=== PATIENT | female | born 1955 | race African-American/Black ===

== ENCOUNTER 2019-08-17 17:22 | Inpatient (IN) | payer MEDICAID ==
[~2019-08-17] VITALS: Ht 172.7 cm; Wt 118.8 kg
[2019-08-17] MEDS ORDERED: MORPHINE SULFATE INJ 4 MG/ML DISP.SYRIN ONE ×2 (17:53→21:50)
--- NOTE | 2019-08-17 17:56 | NUR ---
labs drawn, sent to labs
--- NOTE | 2019-08-17 17:57 | NUR ---
pain meds given as ordered by Dr. Ball
[2019-08-17] MEDS ORDERED: MORPHINE SULFATE INJ 2 MG/ML DISP.SYRIN IV ONE ×2 (18:00→22:00)
[2019-08-17] MEDS ORDERED: ONDANSETRON HCL/PF 4 MG/2 ML VIAL IVP ONE (18:00)
[2019-08-17] MEDS ORDERED: IV NS 0.9% 1,000 ML BAG IV ONE ×2 (18:00→21:30)
[2019-08-17] MEDS ORDERED: ONDANSETRON HCL/PF 4 MG/2 ML VIAL ONE (18:01)
[2019-08-17 18:04] LABS: BASOPHILS % (AUTO) 0.2 % (0.0-2.0); EOSINOPHILS % (AUTO) 0.5 % (0.0-6.0); HEMATOCRIT 45 % (33-45); HEMOGLOBIN 15.2 g/dL (11.5-14.8); LYMPHOCYTES # (AUTO) 1.1 /CMM (0.8-4.8); LYMPHOCYTES % (AUTO) 12.1 % (20.0-44.0); MEAN CORPUSCULAR HGB CONC 34 g/dl (31.0-36.0); MEAN CORPUSCULAR VOLUME 89 fL (82-100); MONOCYTES # (AUTO) 0.1 /CMM (0.1-1.30); MONOCYTES % (AUTO) 1.2 % (2.0-12.0); NEUTROPHILS # (AUTO) 7.9 /CMM (1.8-8.9); PLATELET COUNT (AUTO) 300 /CMM (150-450); RED BLOOD CELL COUNT(AUTO) 5.03 MIL/uL (4.0-5.2); WHITE BLOOD COUNT (AUTO) 9.2 K/uL (4.3-11.0)
--- NOTE | 2019-08-17 18:12 | NUR ---
ER notified of the patient's current pain status - Dr. Ball is aware
--- NOTE | 2019-08-17 18:20 | NUR ---
the patient remained on shift production supervisor
[2019-08-17 18:43] LABS: CALCIUM, SERUM 10.1 mg/dL (8.5-10.1); CARBON DIOXIDE 29 mmol/L (21-32); CHLORIDE 100 mmol/L (98-107); CREATININE 0.9 mg/dL (0.6-1.3); GLUCOSE 133 mg/dL (74-106); POTASSIUM 3.7 mmol/L (3.5-5.1); SODIUM SERUM 140 mmol/L (136-145); UREA NITROGEN, BLOOD 10 mg/dL (7-18)
[2019-08-17 18:47] LABS: ALANINE AMINOTRANSFERASE 113 U/L (12-78); ALBUMIN 3.4 g/dL (3.4-5.0); ALKALINE PHOSPHATASE 179 U/L (46-116); ASPARTATE AMINOTRANSFERASE 237 U/L (15-37); BILIRUBIN,DIRECT 0.5 mg/dL (0.0-0.2); BILIRUBIN,TOTAL 1.2 mg/dL (0.2-1.0); LIPASE 107 U/L (73-393); TOTAL PROTEIN, SERUM 8.1 g/dL (6.4-8.2)
[2019-08-17] MEDS ORDERED: IV NS 0.9% 250 ML IV ONE ×2 (18:54→19:45)
[2019-08-17] MEDS ORDERED: CT SWABBABLE VALVE TRANS SET 1 EA INFUS.SET MC ONE ×2 (18:54→19:45)
[2019-08-17] MEDS ORDERED: IOHEXOL-350 100 ML VIAL IV ONE ×2 (18:54→19:45)
--- NOTE | 2019-08-17 19:35 | NUR ---
PT RETURNED FROM [facility]IA [facility]
--- NOTE | 2019-08-17 20:19 | NUR ---
PHLEB AT BEDSIDE FOR LAB REDRAW
--- NOTE | 2019-08-17 20:53 | NUR ---
URINE COLLECTED AND SENT TO LAB
[2019-08-17 21:04] LABS: APPEARANCE,URINE Clear (CLEAR); BILIRUBIN,URINE Negative (NEGATIVE); BLOOD, URINE Small Ery/uL (NEGATIVE); COLOR,URINE Yellow (YELLOW); KETONES,URINE Negative (NEGATIVE); LEUKOCYTE ESTERASE ,URINE Negative (NEGATIVE); NITRITE, URINE Negative (NEGATIVE); PH,URINE 5.5 (5.0-8.0); PROTEIN,URINE Negative (NEGATIVE); UGLUCOSE Negative (NEGATIVE)
--- NOTE | 2019-08-17 21:16 | NUR ---
LACTIC 5.3. MD AWARE.
[2019-08-17 21:26] LABS: WBC,URINE 0-2 /HPF (0-3)
[2019-08-17 21:27] LABS: BACTERIA,URINE Few /HPF (None Seen); SQUAMOUS EPITHELIAL CELL,UR Few /HPF (None Seen)
[2019-08-17] MEDS ORDERED: PIPERACILLIN /TAZOBACTAM 3.375 G in IV D5W 50 ML IV ONE (21:30)
[2019-08-17] MEDS ORDERED: PIPERACILLIN /TAZOBACTAM 3.375 G VIAL IV ONE (21:50)
[2019-08-17 22:18] LABS: ACETAMINOPHEN 0 ug/ml (10-30)
[2019-08-17 22:19] LABS: ALCOHOL, BLOOD < 3 mg/dL (0-0)
--- NOTE | 2019-08-17 23:35 | NUR ---
CALLED [facility] FOR PANEL ADMISSION, DR. ROMEO NIXON.
--- NOTE | 2019-08-18 00:20 | NUR ---
PT ASSIGNED TO 102
[2019-08-18] MEDS ORDERED: Z GUARD REMEDY 2 OZ OINT TP PRN (00:30)
[2019-08-18] MEDS ORDERED: MAGNESIUM HYDROXIDE 30 ML UDC PO PRN (00:30)
[2019-08-18] MEDS ORDERED: MAG HYDROX/AL HYDROX/SIMETH 30 ML UDC PO PRN (00:30)
[2019-08-18] MEDS ORDERED: ZOLPIDEM TARTRATE 5 MG TABLET PO PRN (00:30)
--- NOTE | 2019-08-18 00:30 | NUR ---
REPORT GIVEN TO TIBURCIO HOLLINS FOR KAMINI
[2019-08-18 00:57] VITALS: BP 104/60
[2019-08-18] MEDS: IV 1/2NS 1000 ML 1,000 ML IV PRN ×3 (01:55→12:58)
[2019-08-18] MEDS: HYDROCODONE/APAP 5/325MG 1 EACH TABLET PO PRN ×2 (01:57→13:53)
[2019-08-18 04:20] VITALS: BP 110/72
[2019-08-18] MEDS ORDERED: PIPERACILLIN /TAZOBACTAM 4.5 G in IV D5W 50 ML IV SCH (06:00)
--- NOTE | 2019-08-18 07:00 | NUR ---
RN MS NOTE RECEIVED REPORT AT BEDSIDE. PATIENT IS RESTING COMFORTABLY. ON ROOM AIR, NO ACUTE RESPIRATORY DISTRESS OR SOB NOTED. R AC 1/2 NS RUNNING 125 ML/HR. LEFT AC IV NOT FLUSHED AND PT COMPLAINED OF PAIN, L AC IV REMOVED AT THIS TIME. SAFETY MEASURE IN PLACE. CALL LIGHT WITHIN REACH. BED IN LOWEST AND LOCKED POSITION. SIDE RAILS UPX2. INSTRUCTED TO USE CALL LIGHT IF SHE NEEDS TO GO TO THE BATHROOM. WILL CONT' TO MONITOR.
--- NOTE | 2019-08-18 07:07 | NUR ---
MS RN CLOSING NOTES: PATIENT IS RESTING COMFORTABLY IN BED. NO SOB NOTED. NORCO 1 TAB PO GIVEN AT 0200 FOR BACK PAIN. RESTED THROUGHOUT THE NIGHT. NO ACUTE EVENTS OVERNIGHT. VOIDED. NO BM YET. ZOSYN IV DUE AT 0600 NOT GIVEN- MED IS NOT AVAILABLE ON FLOOR- WILL ENDORSE TO THE NEXT SHIFT RN. CALL LIGHT WITHIN REACH. BED IN LOWEST AND LOCKED POSITION.
[2019-08-18 07:46] LABS: BASOPHILS % (AUTO) 0.1 % (0.0-2.0); HEMATOCRIT 39 % (33-45); LYMPHOCYTES # (AUTO) 0.8 /CMM (0.8-4.8); LYMPHOCYTES % (AUTO) 3.2 % (20.0-44.0); MEAN CORPUSCULAR HGB CONC 33 g/dl (31.0-36.0); MEAN CORPUSCULAR VOLUME 89 fL (82-100); MONOCYTES # (AUTO) 1.5 /CMM (0.1-1.30); MONOCYTES % (AUTO) 5.8 % (2.0-12.0); NEUTROPHILS # (AUTO) 23.4 /CMM (1.8-8.9); NEUTROPHILS % (AUTO) 90.9 % (43.0-81.0); PLATELET COUNT (AUTO) 291 /CMM (150-450); RED BLOOD CELL COUNT(AUTO) 4.39 MIL/uL (4.0-5.2); WHITE BLOOD COUNT (AUTO) 25.8 K/uL (4.3-11.0)
[2019-08-18 08:00] VITALS: BP 102/63
[2019-08-18 08:05] LABS: THYROID STIMULATING HORMONE 2.689 uIU/mL (0.358-3.74)
[2019-08-18 08:22] LABS: ALANINE AMINOTRANSFERASE 173 U/L (12-78); ALBUMIN 2.6 g/dL (3.4-5.0); ALKALINE PHOSPHATASE 174 U/L (46-116); ASPARTATE AMINOTRANSFERASE 165 U/L (15-37); BILIRUBIN,TOTAL 3.7 mg/dL (0.2-1.0); CALCIUM, SERUM 8.5 mg/dL (8.5-10.1); CARBON DIOXIDE 26 mmol/L (21-32); CHLORIDE 99 mmol/L (98-107); CREATININE 0.9 mg/dL (0.6-1.3); GLUCOSE 134 mg/dL (74-106); LIPASE 45 U/L (73-393); SODIUM SERUM 138 mmol/L (136-145); TOTAL PROTEIN, SERUM 6.7 g/dL (6.4-8.2); UREA NITROGEN, BLOOD 7 mg/dL (7-18)
[2019-08-18] MEDS ORDERED: HYDR25TA4 PO (08:31)
[2019-08-18] MEDS ORDERED: DICL100G16 TP (08:31)
--- NOTE | 2019-08-18 12:44 | NUR ---
RN MS NOTE CALLED [facility]RISTOF[facility] RASMUSSEN TO GET CONSENT FOR WOUND DEBRIDMENT. NO ANSWER, VOICE MESSAGE LEFT.
[2019-08-18] MEDS: PIPERACILLIN /TAZOBACTAM 3.375 G in IV D5W 100 ML IV SCH ×2 (12:55→20:22)
[2019-08-18] MEDS: POTASSIUM CL. PREMIX PERIPHER. 50 ML IV SCH ×6 (12:55→19:14)
--- NOTE | 2019-08-18 12:55 | NUR ---
RN MS NOTE PT BS 134. DR. VAZQUEZ MADE AWARE. INSULIN ORDERED.
[2019-08-18] MEDS ORDERED: INSULIN REGULAR, HUMAN 100 UNIT/ML 3 ML VIAL SQ PRN (13:30)
[2019-08-18] MEDS ORDERED: DEXTROSE 50%-WATER 50 ML DISP.SYRIN IV PRN (13:30)
[2019-08-18 16:00] VITALS: BP 110/68
--- NOTE | 2019-08-18 16:20 | NUR ---
RN MS NOTE PT HAS GRAM NEGATIVE RODS IN BLOOD CULTURE. DR. VAZQUEZ MADE AWARE.
[2019-08-18] MEDS: BLOOD SUGAR DIAGNOSTIC 1 EACH STRIP IN SCH ×2 (18:06→21:15)
--- NOTE | 2019-08-18 18:46 | NUR ---
RN MS NOTE LACTIC ACID 1.0. DR. WHITE MADE AWARE.
--- NOTE | 2019-08-18 19:00 | NUR ---
RN MS OPENING NOTES RECEIVED PATIENT IN BED AWAKE ALERT AND ORIENTED X 4 RESPIRATIONS EVEN AND UNLABORED WITH EQUAL RISE AND FALL OF CHEST, DENIES ANY PAIN OR DISCOMFORT AT THIS TIME, IV SITE TO RIGHT AC INTACT AND PATENT, NO REDNESS,NO INFILTRATION PRESENT, ORIENTED TO STAFF AND CALL LIGHT AND KEPT WITHIN REACH, SAFETY PRECAUTIONS IN PLACE, LOW BED AND LOCKED, FLUIDS AND TOILETING OFFERED, DISCUSSED PLAN OF CARE ALL NEEDS ATTENDED AT THIS TIME WILL CONTINUE TO MONITOR NEEDS.
--- NOTE | 2019-08-18 19:54 | NUR ---
MS RN CLOSING NOTE PT AWAKE. NO SIGN OF RESPIRATORY DISTRESS OR SOB AT THIS TIME. DENIES PAIN. ALL NEEDS ATTENDANT. NO SIGNIFICANT CHANGE DURING THE SHIFT. SAFETY MEASURE IN PLACE. BED LOCKED AND LOW. SIDE RAILS UP X3, CALL LIGHT IN REACH. ENDORSED TO THE PM NURSE FOR KAMINI.
[2019-08-18 20:00] VITALS: BP 121/71
[2019-08-18] MEDS: MORPHINE SULFATE INJ 2 MG/ML DISP.SYRIN IV PRN (21:11)
--- NOTE | 2019-08-18 21:11 | NUR ---
RN MS NOTES PATIENT STATES "RIGHT ARM IN IS ACHY FROM IVF RECEIVED POTASSIUM TODAY REQUESTING FOR PAIN MEDICATION MORPHINE 10/" VS WNL MORPHINE PRN GIVEN ORDERED WILL CONTINUE TO MONITOR, IV SITE IS INTACT AND PATENT, NO REDNESS, NO INFILTRATION.
[2019-08-19] MEDS: ACETAMINOPHEN 325 MG TABLET PO PRN (00:19)
--- NOTE | 2019-08-19 00:19 | NUR ---
RN MS NOTES PATIENT COMPLAINT OF HEADACHE, OFFERED TYLENOL, PRN GIVEN ORDERED WILL CONTINUE TO MONITOR.
[2019-08-19 04:00] VITALS: BP 97/62
[2019-08-19] MEDS: PIPERACILLIN /TAZOBACTAM 3.375 G in IV D5W 100 ML IV SCH ×3 (04:36→20:24)
--- NOTE | 2019-08-19 06:27 | NUR ---
RN MS CLOSING NOTES PATIENT IN BED AWAKE ALERT AND ORIENTED X 4 RESPIRATIONS EVEN AND UNLABORED WITH EQUAL RISE AND FALL OF CHEST, DENIES ANY PAIN OR DISCOMFORT AT THIS TIME, IV SITE TO RIGHT AC INTACT AND PATENT, NO REDNESS,NO INFILTRATION PRESENT,IVF RUNNING ORDERED PATIENT AT TIMES REQUESTED TO HAVE IV OFF AND ON THROUGHOUT SHIFT, TOLERATING PO FLUIDS WELL.CALL LIGHT AND KEPT WITHIN REACH, SAFETY PRECAUTIONS IN PLACE, LOW BED AND LOCKED, FLUIDS AND TOILETING OFFERED, ALL NEEDS ATTENDED AT THIS TIME WILL CONTINUE TO MONITOR AND ENDORSE TO NEXT SHIFT. REMAINS COMFORTABLE.
[2019-08-19 07:30] LABS: BASOPHILS % (AUTO) 0.2 % (0.0-2.0); EOSINOPHILS % (AUTO) 0.9 % (0.0-6.0); HEMATOCRIT 37 % (33-45); HEMOGLOBIN 12.4 g/dL (11.5-14.8); LYMPHOCYTES # (AUTO) 1.2 /CMM (0.8-4.8); MEAN CORPUSCULAR HGB CONC 33 g/dl (31.0-36.0); MEAN CORPUSCULAR VOLUME 89 fL (82-100); MONOCYTES # (AUTO) 0.7 /CMM (0.1-1.30); MONOCYTES % (AUTO) 5.4 % (2.0-12.0); NEUTROPHILS # (AUTO) 10.3 /CMM (1.8-8.9); NEUTROPHILS % (AUTO) 83.5 % (43.0-81.0); PLATELET COUNT (AUTO) 229 /CMM (150-450); RED BLOOD CELL COUNT(AUTO) 4.19 MIL/uL (4.0-5.2); WHITE BLOOD COUNT (AUTO) 12.3 K/uL (4.3-11.0)
[2019-08-19] MEDS: BLOOD SUGAR DIAGNOSTIC 1 EACH STRIP IN SCH ×4 (07:47→22:15)
[2019-08-19 08:00] VITALS: BP 138/77
[2019-08-19 10:19] LABS: ALBUMIN 2.4 g/dL (3.4-5.0); BILIRUBIN,TOTAL 2.1 mg/dL (0.2-1.0); CALCIUM, SERUM 8.7 mg/dL (8.5-10.1); CREATININE 0.8 mg/dL (0.6-1.3); PHOSPHORUS 2.2 mg/dL (2.5-4.9); POTASSIUM 3.4 mmol/L (3.5-5.1); TOTAL PROTEIN, SERUM 6.2 g/dL (6.4-8.2)
[2019-08-19 12:00] VITALS: BP 138/77
[2019-08-19] MEDS ORDERED: K PHOS NEUTRAL 250 MG TABLET PO ONE (13:30)
--- NOTE | 2019-08-19 15:35 | NUR ---
MS RN NOTES OPENING RECEIVED PT SITTING IN THE BED A/O X4, COOPERATIVE. NO SIGNS OF SOB NOTED. PT COMPLAINED OF HEADACHE , OFFERED MEDICATION AND SHE REFUSED. EDUCATED HER TO USE CALL LIGHT AND ASK FOR PRN MEDICATION IF WORSEN. RIGHT ARM SL FLUSHED WELL AND PATENT. ALL SAFETY MEASURES IMPLANTED, BED AT THE LOWEST POSITION AND LOCKED, SIDE RAILS UPX2, CALL LIGHT WITHIN REACH. WILL CONTINUE TO MONITOR.
[2019-08-19 16:00] VITALS: BP 137/68
--- NOTE | 2019-08-19 19:45 | NUR ---
MS RN NOTE PATIENT RECEIVED IN BED AWAKE A/O X 4. PATIENT DENIES CHEST PAIN/ SOB/ DISCOMFORT/ ABD PAIN. DISCUSSED WITH PATIENT GOALS FOR THE DAY AND PLAN OF CARE. PATIENT BREATHING EVEN AND UNLABORED NO S/S OF DISTRESS AT THIS TIME. CALL LIGHT WITHIN REACH. RN WILL CONTINUE TO MONITOR FOR CHANGES .
[2019-08-19 20:00] VITALS: BP 123/74
--- NOTE | 2019-08-19 20:55 | NUR ---
MS RN NOTES PT IN BED SITTING AND AWAKE. A/O X4 . ALL NEED ATTENDED. SL ON THE LEFT ARM PATENT AND FLUSHED WITH SALINE. CALL LIGHT WITHIN REACH . ENDORSED TO NIGHT RN FOR KAMINI.
[2019-08-20] MEDS: MORPHINE SULFATE INJ 2 MG/ML DISP.SYRIN IV PRN ×2 (01:08→12:32)
[2019-08-20] MEDS: IV 1/2NS 1000 ML 1,000 ML IV PRN (01:09)
[2019-08-20] MEDS: ONDANSETRON HCL/PF 4 MG/2 ML VIAL IVP PRN ×2 (01:09→12:32)
[2019-08-20] MEDS: ACETAMINOPHEN 325 MG TABLET PO PRN (03:50)
[2019-08-20] MEDS: PIPERACILLIN /TAZOBACTAM 3.375 G in IV D5W 100 ML IV SCH ×3 (03:54→20:00)
[2019-08-20 04:00] VITALS: BP 99/61
[2019-08-20 06:17] LABS: ALBUMIN 2.4 g/dL (3.4-5.0); BILIRUBIN,TOTAL 1.1 mg/dL (0.2-1.0); CALCIUM, SERUM 8.6 mg/dL (8.5-10.1); CREATININE 0.8 mg/dL (0.6-1.3); MAGNESIUM 2.1 mg/dL (1.8-2.4); PHOSPHORUS 2.9 mg/dL (2.5-4.9); POTASSIUM 3.4 mmol/L (3.5-5.1); TOTAL PROTEIN, SERUM 6.5 g/dL (6.4-8.2)
[2019-08-20 06:20] LABS: BASOPHILS % (AUTO) 0.3 % (0.0-2.0); EOSINOPHILS % (AUTO) 2.3 % (0.0-6.0); HEMATOCRIT 37 % (33-45); HEMOGLOBIN 12.2 g/dL (11.5-14.8); LYMPHOCYTES # (AUTO) 1.8 /CMM (0.8-4.8); LYMPHOCYTES % (AUTO) 23.6 % (20.0-44.0); MEAN CORPUSCULAR HGB CONC 33 g/dl (31.0-36.0); MEAN CORPUSCULAR VOLUME 89 fL (82-100); MONOCYTES # (AUTO) 0.6 /CMM (0.1-1.30); MONOCYTES % (AUTO) 8.1 % (2.0-12.0); NEUTROPHILS # (AUTO) 5.1 /CMM (1.8-8.9); NEUTROPHILS % (AUTO) 65.7 % (43.0-81.0); PLATELET COUNT (AUTO) 249 /CMM (150-450); RED BLOOD CELL COUNT(AUTO) 4.13 MIL/uL (4.0-5.2); WHITE BLOOD COUNT (AUTO) 7.7 K/uL (4.3-11.0)
--- NOTE | 2019-08-20 06:34 | NUR ---
MS RN NOTE RECHECKED PATIENT CONSENTS FOR MRCP TODAY AT 9AM. CHECKLIST COMPLETED CONSENTS NOT SIGNED. CONSENT GIVEN TO PATIENT TO LOOK OVER. PATIENT STATES SHE WILL READ THE CONSENT ON HER OWN AND ALL RN BACK WHEN SHE IS DONE.
--- NOTE | 2019-08-20 07:10 | NUR ---
MS RN NOTES OPENING RECEIVED PT SITTING IN THE BED A/O X4, COOPERATIVE. NO SIGNS OF SOB NOTED. ALL SAFETY MEASURES IMPLANTED, BED AT THE LOWEST POSITION AND LOCKED, SIDE RAILS UPX2, CALL LIGHT WITHIN REACH. WILL CONTINUE TO MONITOR.
[2019-08-20 08:00] VITALS: BP 135/83
[2019-08-20] MEDS: BLOOD SUGAR DIAGNOSTIC 1 EACH STRIP IN SCH ×3 (08:38→17:57)
--- NOTE | 2019-08-20 10:05 | NUR ---
MSRN NOTES PT TAKEN TO MRI.
--- NOTE | 2019-08-20 11:00 | NUR ---
MS RN NOTE PT CAME BACK FORM MRI. VS STABLE.
[2019-08-20] MEDS: POTASSIUM CL. PREMIX PERIPHER. 50 ML IV SCH ×2 (11:16→12:31)
[2019-08-20 16:00] VITALS: BP_SYST 132; BP_SYST 135; BP_DIAS 83; BP_DIAS 86
[2019-08-20] MEDS ORDERED: LEVO500T75 PO (16:59)
--- NOTE | 2019-08-20 19:02 | NUR ---
RN MS NOTES PT RESTING COMFORTABLY. ALL NEEDS ATTENDANT. WILL DISCHARGED TONIGHT. ALL PAPER WORKS DONE. WILL ENDORSE TO PM NURSE FOR KAMINI.
[2019-08-20 20:00] VITALS: BP 131/77
--- NOTE | 2019-08-20 22:19 | NUR ---
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 PT TO DC HOME. ALL AFTER CARE INSTRUCTIONS GIVEN. INSTRUCTED TO FOLLOW UP WITH DR. WHITE. PT VERBALIZED UNDERSTANDING AND SIGNED DC PAPER WORK. IV CATH REMOVED WITH CATH TIP INTACT. SITE BENIGN.
== END 2019-08-20 22:21 | disposition home or self-care (01) ==
LOC: EDBD 17:27 → ER 17:27 → TELE1 08-18 00:26 → MEDSG1 08-18 01:04
PROVIDERS: ADMIT Nurse Practitioner Acute Care; ATTEND Nurse Practitioner Acute Care
DX: K81.0 Acute cholecystitis (principal); K83.09 Other cholangitis; E87.2 Acidosis; E66.01 Morbid (severe) obesity due to excess calories; E78.5 Hyperlipidemia, unspecified; E87.6 Hypokalemia; R73.03 Prediabetes; R74.0 Nonspecific elevation of levels of transaminase and lactic acid dehydrogenase [LDH]; Z68.39 Body mass index [BMI] 39.0-39.9, adult; I10 Essential (primary) hypertension; D72.829 Elevated white blood cell count, unspecified; E80.6 Other disorders of bilirubin metabolism; K83.8 Other specified diseases of biliary tract
CPT/HCPCS: 36415; 71045-TC; 74181-TC; 76705-TC; 80048-TC; 80053-TC; 80076-TC; 80305; 81000-TC; 82962-TC; 83605-TC; 83690-TC; 83735-TC; 84100-TC; 84443-TC; 84484-TC; 85025-TC; 85730-TC; 87040-TC; 87081-TC; 87186-TC; 93307-TC; G0378; G0480; J1815; J2270; J2405; J2543; J3480; J3490; J7030; J7040; J7042; J7050; J7060; Q9967